=== PATIENT | female | born 1990 | race Two or more races ===

== ENCOUNTER 2020-09-22 10:37 | Emergency (ER) | payer MEDICAID, OTHER ==
[~2020-09-22] VITALS: Ht 157.5 cm; Wt 90.7 kg
[2020-09-22 10:43] VITALS: BP 126/82
== END 2020-09-22 12:25 | disposition home or self-care (01) ==
LOC: ER 10:37
DX: L20.9 Atopic dermatitis, unspecified (principal); L01.00 Impetigo, unspecified